=== PATIENT | female | born 1965 | race Caucasian/White ===

== ENCOUNTER 2023-10-10 18:05 | Emergency (ER) | payer BC ==
[~2023-10-10] VITALS: Ht 165.1 cm; Wt 53.9 kg
[~2023-10-10 18:05] MED LIST: ALBU0.63 NEB; ALTA10CA3 PO; AVEL1TAB2 PO; IPRA2IN INH; METO-1 PO; PRED20TA PO; TYLE325T5 PO
[2023-10-10] MEDS ORDERED: ASPI81CH33 PO (18:13)
[2023-10-10 18:47] LABS: BASO # 0.1 10^3/uL (0.0-0.2); BASO % 0.8 % (0.0-1.0); EOS # 0.5 10^3/uL (0.0-0.5); EOS % 5.5 % (0.0-3.0); HEMATOCRIT 47.7 % (36.0-47.0); LYMPH # 2.2 10^3/uL (1.5-5.0); LYMPH % 22.9 % (24.0-44.0); MEAN CORPUSCULAR HEMOGLOBIN 34.1 pg (27.0-33.0); MEAN CORPUSCULAR HGB CONC 35.6 g/dl (32.0-36.5); MEAN CORPUSCULAR VOLUME 95.8 fl (80.0-96.0); MONO # 0.7 10^3/uL (0.0-0.8); NEUTROPHILS # 6.2 10^3/uL (1.5-8.5); NEUTROPHILS % 63.5 % (36.0-66.0); PLATELET COUNT, AUTOMATED 313 10^3/uL (150-450); RED BLOOD COUNT 4.98 10^6/uL (4.00-5.40); WHITE BLOOD COUNT 9.8 10^3/uL (4.0-10.0)
[2023-10-10] MEDS: ASPIRIN 81MG CHEW TABLET PO ONE (18:51)
[2023-10-10] MEDS: NITROGLYCERIN 0.4MG SUBL TABLET SL PRN (18:51)
[2023-10-10] MEDS: methylPREDNISolone 125MG 2ML VIAL IV ONE (18:51)
[2023-10-10] MEDS: IPRATROPIUM 0.5MG/ALBUTEROL 2.5MG INH SOL UD 3ML (DUONEB) NEB ONE (19:02)
[2023-10-10] MEDS: ALBUTEROL SULFATE 2.5MG/0.5ML INH NEB SOLN NEB ONE (19:02)
[2023-10-10 19:11] LABS: ALBUMIN 4.2 G/DL (3.2-5.2); ALKALINE PHOSPHATASE 83 U/L (46-116); ALT/SGPT 28 U/L (7.0-40); AST/SGOT 26 U/L (<34); BILIRUBIN,DIRECT 0.1 MG/DL (<0.4); BILIRUBIN,TOTAL 0.4 MG/DL (0.3-1.2); BLOOD UREA NITROGEN 21 MG/DL (9-23); CALCIUM LEVEL 9.5 MG/DL (8.3-10.6); CARBON DIOXIDE LEVEL 27 MMOL/L (20-31); CHLORIDE LEVEL 104 MMOL/L (98-107); CK-MB VALUE MASS 3.2 NG/ML (<3.6); CREATININE FOR GFR 0.91 MG/DL (0.55-1.30); GLOMERULAR FILTRATION RATE > 60.0 (>45); GLUCOSE, FASTING 131 MG/DL (74-106); POTASSIUM SERUM 3.9 MMOL/L (3.5-5.1); SODIUM LEVEL 139 MMOL/L (136-145); TOTAL PROTEIN 7.6 G/DL (5.7-8.2)
[2023-10-10 19:18] LABS: CPK CREATINE PHOSPHOKINASE 113 U/L (34-145); MB/CK RELATIVE INDEX 2.83 (< OR =4)
[2023-10-10] MEDS ORDERED: ISOVUE-370 76% 100ML VIAL As Ordered ONE (19:19)
[2023-10-10 19:38] VITALS: BP 203/89
[2023-10-10 20:16] LABS: CK-MB VALUE MASS 2.3 NG/ML (<3.6)
[2023-10-10 20:25] LABS: MB/CK RELATIVE INDEX 2.61 (< OR =4)
[2023-10-10 21:30] VITALS: BP 147/87; TEMP 97.9; O2SAT 96
[2023-10-10] MEDS ORDERED: PRED10TA2 PO (21:43)
[2023-10-10] MEDS ORDERED: VENTAER INH (21:43)
== END 2023-10-10 21:49 | disposition home or self-care (01) ==
LOC: M ED 18:05
DX: J44.1 Chronic obstructive pulmonary disease with (acute) exacerbation (principal); I49.3 Ventricular premature depolarization; I25.2 Old myocardial infarction; I10 Essential (primary) hypertension; F17.210 Nicotine dependence, cigarettes, uncomplicated; F10.10 Alcohol abuse, uncomplicated; Z79.51 Long term (current) use of inhaled steroids; Z79.52 Long term (current) use of systemic steroids; Z79.1 Long term (current) use of non-steroidal anti-inflammatories (NSAID)
CPT/HCPCS: 71045; 71275; 80048; 80076; 82550; 82553; 84484; 85025; 85379; 87040; 87077; 87186; 87486; 87581; 87633; 87798; 93005; 93041; 94640; 94760; 96374; 99285; J2919; Q9967